=== PATIENT | male | born 1930 | race Caucasian/White ===

== ENCOUNTER 2016-07-24 09:47 | Outpatient (CLI) | payer OTHER ==
[~2016-07-24 09:47] MED LIST: ALTOPREV40 MG PO; AZITHROMYCIN250 MG PO; CARDIZEM CD PO; COMBIGAN0.2 MG/0.5 OP; COUMADIN6 MG PO; DORZOLAMIDE HCL2 % OP; FINASTERIDE5 MG PO; FUROSEMIDE20 MG PO; HYTRIN1 MG PO; LATANOPROST0.005 % OP; RANITIDINE HCL150 MG PO; TERAZOSIN HCL1 MG PO
--- NOTE | 2016-07-24 11:36 | DIAGNOSTIC IMAGING REPORT ---
PROCEDURE: US SCROTUM/TESTICLE INDICATION: TESTI PAIN, initial encounter TECHNIQUE: Corona scale and color Doppler sonographic images through the scrotum were obtained. COMPARISON: None. FINDINGS: RIGHT TESTICLE: Measures 3.7 x 2.6 x 2.6 cm with normal echo structure and vascularity. Enlarged right epididymis tail but no evidence of hyperemia. LEFT TESTICLE: Measures 4.3 x 3 x 2.1 cm with normal echo structure and vascularity. Normal epididymis. IMPRESSION: 1. Normal testicles 2. Enlarged right epididymal tail but no evidence of hyperemia to suggest epididymitis.
== END 2016-07-24 23:00 ==
LOC: US SRH 09:47
DX: N50.819 Testicular pain, unspecified (principal)

== ENCOUNTER 2016-08-26 11:12 | Outpatient (CLI) | payer OTHER ==
--- NOTE | 2016-08-26 11:57 | DIAGNOSTIC IMAGING REPORT ---
PROCEDURE: XR CHEST 2 VIEW INDICATION: COUGH TECHNIQUE: PA and lateral views. COMPARISON: None. FINDINGS: Lungs are clear. Heart and mediastinum are normal. Thorax is normal. Pacemaker IMPRESSION: 1. Negative chest.
== END 2016-08-26 23:00 ==
LOC: XR SRH 11:12
DX: R05 Cough (principal)